=== PATIENT | male | born 1965 | race Caucasian/White ===

== ENCOUNTER 2017-09-18 17:36 | Emergency (ER) | payer BC ==
[~2017-09-18] VITALS: Ht 193 cm; Wt 75.0 kg
[2017-09-18 18:27] LABS: EOS % 0.2 % (0.0-4.0); HEMATOCRIT 44.4 % (42.0-52.0); HEMOGLOBIN 15.1 g/dL (13.5-18.0); LYMPH# 1.2 (1.50-4.00); MEAN CELL VOLUME 91 fl (78-100); MEAN CORPUSCULAR HEMOGLOBIN 31 pg (27-31); MEAN CORPUSCULAR HGB CONC 34 g/dL (33-37); MEAN PLATELET VOLUME 8.6 fl (7.4-10.4); MONO # 0.5 (0.20-0.80); NEU # 4.2 (1.40-6.50); PLATELET COUNT 105 K/mm3 (130-400); RED BLOOD COUNT 4.88 M/mm3 (4.20-5.60); RED CELL DISTRIBUTION WIDTH 15.2 % (11.5-14.5)
[2017-09-18 18:40] LABS: ALBUMIN 4.8 g/dL (3.5-5.0); BUN/CREATININE RATIO 14.7 (6.0-26.0); POTASSIUM 4.6 mmol/L (3.6-5.0); TOTAL BILIRUBIN 0.8 mg/dL (0.2-1.3); TOTAL PROTEIN 8.5 g/dL (6.3-8.2)
[2017-09-18 19:19] LABS: URINE APPEARANCE CLEAR; URINE COLOR YELLOW; URINE GLUCOSE NEGATIVE (NEGATIVE); URINE KETONE 2+ (NEGATIVE); URINE PROTEIN(semi-quant) 2+ mg/dL (NEGATIVE)
[2017-09-18 19:20] LABS: URINE BILIRUBIN NEGATIVE (NEGATIVE); URINE BLOOD TRACE (NEGATIVE); URINE LEUKOCYTE ESTERASE NEGATIVE (NEGATIVE); URINE NITRATE NEGATIVE (NEGATIVE); URINE UROBILINOGEN NORMAL (NORMAL)
[2017-09-18 19:21] LABS: URINE MUCUS PRESENT (NOT PRESENT)
[2017-09-18 20:10] VITALS: BP 151/99
== END 2017-09-18 20:10 | disposition home or self-care (01) ==
LOC: ED 17:36
PROVIDERS: Family Medicine
DX: F10.120 Alcohol abuse with intoxication, uncomplicated (principal); C78.02 Secondary malignant neoplasm of left lung; C78.01 Secondary malignant neoplasm of right lung; Z85.47 Personal history of malignant neoplasm of testis; F17.200 Nicotine dependence, unspecified, uncomplicated

== ENCOUNTER 2018-07-09 07:36 | Emergency (ER) | payer SELFPAY ==
[2018-07-09] MEDS ORDERED: AUGMENTIN 875-1 EAC1 PO (08:32)
[2018-07-09] MEDS ORDERED: NORCO 325 MG-51 TAB PO (08:33)
[2018-07-09 09:11] VITALS: BP 107/80
== END 2018-07-09 08:45 | disposition home or self-care (01) ==
LOC: ED 07:36
DX: K05.219 Aggressive periodontitis, localized, unspecified severity (principal); K05.329 Chronic periodontitis, generalized, unspecified severity; S02.5XXA Fracture of tooth (traumatic), initial encounter for closed fracture; F17.210 Nicotine dependence, cigarettes, uncomplicated; C78.02 Secondary malignant neoplasm of left lung; C78.01 Secondary malignant neoplasm of right lung; Z85.47 Personal history of malignant neoplasm of testis; K08.409 Partial loss of teeth, unspecified cause, unspecified class; Z23 Encounter for immunization
CPT/HCPCS: 90715

== ENCOUNTER → 2018-10-18 | Outpatient (CLI) | payer BC ==
[~2018-10-18] MED LIST: AUGMENTIN 875-1 EAC1 PO; NORCO 325 MG-51 TAB PO
== END ==
LOC: RAD 12:19
DX: I65.22 Occlusion and stenosis of left carotid artery (principal)

== ENCOUNTER → 2018-10-19 | Outpatient (CLI) | payer BC | LOC: RAD 11:41 | DX: I65.22 Occlusion and stenosis of left carotid artery (principal); I67.2 Cerebral atherosclerosis | CPT/HCPCS: Q9967 ==

== ENCOUNTER 2022-01-15 10:23 | Emergency (ER) | payer SELFPAY ==
[~2022-01-15] VITALS: Ht 193 cm; Wt 72.2 kg
[2022-01-15 11:34] LABS: BASO # 0.01 K/mm3 (0.02-0.10); EOS # 0.07 K/mm3 (0.04-0.40); EOS % 1.1 % (0.0-4.0); HEMATOCRIT 43.2 % (42.0-52.0); HEMOGLOBIN 14.5 g/dL (13.5-18.0); LYMPH# 1.59 K/mm3 (1.50-4.00); MEAN CELL VOLUME 90 fl (78-100); MEAN CORPUSCULAR HEMOGLOBIN 30 pg (27-31); MEAN CORPUSCULAR HGB CONC 34 g/dL (33-37); MEAN PLATELET VOLUME 8.8 fl (7.4-10.4); MONO # 0.46 K/mm3 (0.20-0.80); NEU # 4.09 K/mm3 (1.40-6.50); PLATELET COUNT 126 K/mm3 (130-400); RED CELL DISTRIBUTION WIDTH 14.2 % (11.5-14.5); WHITE BLOOD COUNT 6.2 K/mm3 (4.8-10.8)
[2022-01-15 11:37] LABS: PROTHROMBIN TIME 9.7 SECONDS (9.0-12.0)
[2022-01-15 11:39] LABS: ALBUMIN 4.1 g/dL (3.5-5.0); POTASSIUM 3.9 mmol/L (3.5-5.1)
[2022-01-15 11:41] LABS: CALCIUM 8.6 mg/dL (8.3-10.5)
[2022-01-15 11:42] LABS: TOTAL PROTEIN 6.9 g/dL (6.4-8.3)
[2022-01-15 11:47] LABS: TOTAL BILIRUBIN 0.1 mg/dL (0.2-1.2)
[2022-01-15] MEDS ORDERED: LIPITOR20 M2 PO (13:14)
[2022-01-15] MEDS ORDERED: ASPIRIN E.C. 8181 MG PO (13:14)
[2022-01-15] MEDS ORDERED: CLOPIDOGREL PO (13:14)
[2022-01-15 13:30] VITALS: BP 120/78
== END 2022-01-15 13:30 | disposition home or self-care (01) ==
LOC: ED 10:23
PROVIDERS: Physician Assistant
DX: H53.8 Other visual disturbances (principal); R55 Syncope and collapse; F17.210 Nicotine dependence, cigarettes, uncomplicated; Z28.311 Partially vaccinated for COVID-19

== ENCOUNTER 2022-04-04 07:20 | Emergency (ER) | payer SELFPAY ==
[~2022-04-04] VITALS: Ht 195.6 cm; Wt 72.7 kg
[~2022-04-04 07:20] MED LIST changes: +ASPIRIN E.C. 8181 MG PO; +CLOPIDOGREL PO; +LIPITOR20 M2 PO
[2022-04-04 08:16] LABS: BASO # 0.02 K/mm3 (0.02-0.10); EOS # 0.03 K/mm3 (0.04-0.40); EOS % 0.4 % (0.0-4.0); HEMATOCRIT 47.5 % (42.0-52.0); HEMOGLOBIN 16.1 g/dL (13.5-18.0); LYMPH# 1.12 K/mm3 (1.50-4.00); MEAN CELL VOLUME 89 fl (78-100); MEAN CORPUSCULAR HEMOGLOBIN 30 pg (27-31); MEAN CORPUSCULAR HGB CONC 34 g/dL (33-37); MEAN PLATELET VOLUME 8.5 fl (7.4-10.4); MONO # 0.64 K/mm3 (0.20-0.80); NEU # 6.14 K/mm3 (1.40-6.50); PLATELET COUNT 114 K/mm3 (130-400); RED BLOOD COUNT 5.37 M/mm3 (4.20-5.60); RED CELL DISTRIBUTION WIDTH 14.6 % (11.5-14.5)
[2022-04-04 08:20] LABS: ALBUMIN 4.3 g/dL (3.5-5.0); POTASSIUM 3.9 mmol/L (3.5-5.1); SODIUM 140 mmol/L (136-145)
[2022-04-04 08:21] LABS: CALCIUM 9.3 mg/dL (8.3-10.5)
[2022-04-04 08:22] LABS: GLUCOSE 104 mg/dL (75-110); TOTAL PROTEIN 7.9 g/dL (6.4-8.3)
[2022-04-04 08:23] LABS: CARBON DIOXIDE 22 mmol/L (22-29)
[2022-04-04 08:24] LABS: TOTAL BILIRUBIN 0.4 mg/dL (0.2-1.2)
[2022-04-04 08:28] LABS: AST-SGOT 33 U/L (5-34)
[2022-04-04 08:37] LABS: ALT/SGPT 22 U/L (0-55); LIPASE 7 U/L (8-78)
[2022-04-04 08:39] LABS: ALCOHOL IN-HOUSE 30 mg/dL (<10); TROPONIN-I < 0.030 ng/mL (<0.030)
[2022-04-04 09:41] VITALS: BP 172/100
[2022-04-04 11:21] LABS: URINE APPEARANCE CLEAR; URINE COLOR YELLOW
[2022-04-04 11:22] LABS: URINE BILIRUBIN NEGATIVE (NEGATIVE); URINE BLOOD 50 ery/uL (NEGATIVE); URINE GLUCOSE NEGATIVE (NEGATIVE); URINE KETONE NEGATIVE (NEGATIVE); URINE LEUKOCYTE ESTERASE NEGATIVE (NEGATIVE); URINE NITRATE NEGATIVE (NEGATIVE); URINE PROTEIN(semi-quant) TRACE (NEGATIVE); URINE UROBILINOGEN NORMAL (NORMAL)
[2022-04-04 11:23] LABS: URINE MUCUS PRESENT (NOT PRESENT); URINE WBC 0-1 /hpf (0-3)
== END 2022-04-04 09:40 | disposition home or self-care (01) ==
LOC: ED 07:20
PROVIDERS: Nurse Practitioner
DX: F10.10 Alcohol abuse, uncomplicated (principal); R51.9 Headache, unspecified; F17.200 Nicotine dependence, unspecified, uncomplicated
CPT/HCPCS: J2405; J7030

== ENCOUNTER 2022-04-26 06:10 | Emergency (ER) | payer SELFPAY ==
[~2022-04-26] VITALS: Ht 193 cm; Wt 72.7 kg
[2022-04-26 07:40] LABS: HEMATOCRIT 46.9 % (42.0-52.0); HEMOGLOBIN 16.2 g/dL (13.5-18.0); MEAN CELL VOLUME 88 fl (78-100); MEAN CORPUSCULAR HEMOGLOBIN 31 pg (27-31); MEAN CORPUSCULAR HGB CONC 35 g/dL (33-37); MEAN PLATELET VOLUME 8.2 fl (7.4-10.4); PLATELET COUNT 87 K/mm3 (130-400); RED BLOOD COUNT 5.31 M/mm3 (4.20-5.60); RED CELL DISTRIBUTION WIDTH 14.8 % (11.5-14.5); WHITE BLOOD COUNT 11.6 K/mm3 (4.8-10.8)
[2022-04-26 07:48] LABS: ALBUMIN 4.2 g/dL (3.5-5.0); POTASSIUM 3.7 mmol/L (3.5-5.1)
[2022-04-26 07:49] LABS: CALCIUM 9.3 mg/dL (8.3-10.5)
[2022-04-26 07:50] LABS: TOTAL PROTEIN 7.7 g/dL (6.4-8.3)
[2022-04-26 07:52] LABS: TOTAL BILIRUBIN 0.5 mg/dL (0.2-1.2)
[2022-04-26 07:57] LABS: MAGNESIUM 1.58 mg/dL (1.60-2.60)
[2022-04-26 08:14] LABS: BAND 1 % (0-10); LYMPHOCYTE 7 % (20-51); MONOCYTE 6 % (3-10); NEUTROPHILS 86 % (42-75)
[2022-04-26] MEDS ORDERED: NORCO 325 MG-51 TA1 PO (10:11)
[2022-04-26 11:03] VITALS: BP 150/90
== END 2022-04-26 10:30 | disposition home or self-care (01) ==
LOC: ED 06:10
PROVIDERS: Family Medicine
DX: S70.02XA Contusion of left hip, initial encounter (principal); F10.10 Alcohol abuse, uncomplicated; F17.210 Nicotine dependence, cigarettes, uncomplicated; W10.8XXA Fall (on) (from) other stairs and steps, initial encounter; Y90.6 Blood alcohol level of 120-199 mg/100 ml
CPT/HCPCS: J1885; J2060; J3411; J3475; J3490; J7030

== ENCOUNTER 2022-05-13 22:30 | Emergency (ER) | payer SELFPAY ==
[~2022-05-13] VITALS: Ht 193 cm; Wt 68.2 kg
[~2022-05-13 22:30] MED LIST changes: +NORCO 325 MG-51 TA1 PO
[2022-05-13 23:01] LABS: HEMATOCRIT 49.7 % (42.0-52.0); HEMOGLOBIN 16.8 g/dL (13.5-18.0); MEAN CELL VOLUME 90 fl (78-100); MEAN CORPUSCULAR HEMOGLOBIN 30 pg (27-31); MEAN CORPUSCULAR HGB CONC 34 g/dL (33-37); MEAN PLATELET VOLUME 8.6 fl (7.4-10.4); PLATELET COUNT 74 K/mm3 (130-400); RED BLOOD COUNT 5.55 M/mm3 (4.20-5.60); RED CELL DISTRIBUTION WIDTH 14.4 % (11.5-14.5)
[2022-05-13 23:08] LABS: WHITE BLOOD COUNT 25.1 K/mm3 (4.8-10.8)
[2022-05-13 23:13] LABS: ALBUMIN 4.7 g/dL (3.5-5.0); SODIUM 144 mmol/L (136-145)
[2022-05-13 23:14] LABS: CALCIUM 9.9 mg/dL (8.3-10.5)
[2022-05-13 23:15] LABS: GLUCOSE 188 mg/dL (75-110); TOTAL PROTEIN 8.6 g/dL (6.4-8.3)
[2022-05-13 23:16] LABS: CARBON DIOXIDE 19 mmol/L (22-29)
[2022-05-13 23:17] LABS: TOTAL BILIRUBIN 0.8 mg/dL (0.2-1.2)
[2022-05-13 23:21] LABS: AST-SGOT 44 U/L (5-34)
[2022-05-13 23:22] LABS: ALT/SGPT 32 U/L (0-55); LIPASE 12 U/L (8-78)
[2022-05-13 23:23] LABS: LYMPHOCYTE 5 % (20-51); MONOCYTE 6 % (3-10); NEUTROPHILS 89 % (42-75)
[2022-05-13 23:24] LABS: ALCOHOL IN-HOUSE < 10 mg/dL (<10)
[2022-05-14 06:42] LABS: HEMATOCRIT 41.8 % (42.0-52.0); HEMOGLOBIN 14.1 g/dL (13.5-18.0); MEAN CELL VOLUME 90 fl (78-100); MEAN CORPUSCULAR HEMOGLOBIN 30 pg (27-31); MEAN CORPUSCULAR HGB CONC 34 g/dL (33-37); MEAN PLATELET VOLUME 8.8 fl (7.4-10.4); PLATELET COUNT 54 K/mm3 (130-400); RED BLOOD COUNT 4.64 M/mm3 (4.20-5.60); RED CELL DISTRIBUTION WIDTH 14.5 % (11.5-14.5); WHITE BLOOD COUNT 15.4 K/mm3 (4.8-10.8)
[2022-05-14 06:57] LABS: URINE APPEARANCE HAZY; URINE BILIRUBIN NEGATIVE (NEGATIVE); URINE BLOOD TRACE (NEGATIVE); URINE COLOR YELLOW; URINE GLUCOSE NEGATIVE (NEGATIVE); URINE KETONE 1+ (NEGATIVE); URINE NITRATE NEGATIVE (NEGATIVE); URINE PROTEIN(semi-quant) TRACE (NEGATIVE); URINE UROBILINOGEN NORMAL (NORMAL)
[2022-05-14 06:58] LABS: URINE LEUKOCYTE ESTERASE NEGATIVE (NEGATIVE); URINE MUCUS PRESENT (NOT PRESENT)
[2022-05-14 07:24] LABS: LYMPHOCYTE 4 % (20-51); MONOCYTE 7 % (3-10); NEUTROPHILS 89 % (42-75)
[2022-05-14] MEDS ORDERED: LIBRIUM 25M25 MG/CAP PO (08:33)
[2022-05-14 08:54] VITALS: BP 159/98
== END 2022-05-14 08:43 | disposition left against medical advice (07) ==
LOC: ED 22:30
PROVIDERS: Nurse Practitioner
DX: F10.239 Alcohol dependence with withdrawal, unspecified (principal); F17.210 Nicotine dependence, cigarettes, uncomplicated
CPT/HCPCS: J2060; J2405; J7030